=== PATIENT | female | born 2000 | race Caucasian/White ===

== ENCOUNTER 2023-06-23 19:29 | Emergency (ER) | payer SELFPAY ==
[~2023-06-23] VITALS: Ht 152.4 cm; Wt 68.9 kg
[2023-06-23 19:41] VITALS: BP 106/70; PULSE 72; RESP 18; TEMP 98; O2SAT 99
[2023-06-23 21:47] LABS: APPEARANCE,URINE CLEAR (CLEAR); BILIRUBIN,URINE NEGATIVE (NEGATIVE); BLOOD, URINE 2+ (NEGATIVE); COLOR,URINE YELLOW (YELLOW); LEUKOCYTE ESTERASE ,URINE NEGATIVE (NEGATIVE); NITRITE, URINE NEGATIVE (NEGATIVE); PROTEIN,URINE NEGATIVE (NEGATIVE); UGLUCOSE NEGATIVE (NEGATIVE); UROBILINOGEN,URINE 0.2 EU/dL (0.2 - 1)
[2023-06-23 22:21] LABS: BACTERIA,URINE FEW /HPF (None Seen); RBC,URINE 0-5 /HPF (0-5); SQUAMOUS EPITHELIAL CELL,UR 0-3 (FEW) /LPF (0-3 (FEW)); WBC,URINE NONE SEEN /HPF (0-5)
[2023-06-23] MEDS ORDERED: CEPH-588 PO (22:28)
[2023-06-23] MEDS ORDERED: IBUP-2213 PO (22:28)
[2023-06-23 22:44] VITALS: BP 106/70; PULSE 72; RESP 18; TEMP 98; O2SAT 99
== END 2023-06-23 22:44 | disposition home or self-care (01) ==
LOC: MED 19:29
DX: S39.012A Strain of muscle, fascia and tendon of lower back, initial encounter (principal); N39.0 Urinary tract infection, site not specified; Z79.1 Long term (current) use of non-steroidal anti-inflammatories (NSAID); Z79.2 Long term (current) use of antibiotics; X58.XXXA Exposure to other specified factors, initial encounter; Y92.89 Other specified places as the place of occurrence of the external cause; Y93.89 Activity, other specified; Y99.8 Other external cause status
CPT/HCPCS: 81001; 81025; 99283